=== PATIENT | male | born 1940 | race Caucasian/White ===

== ENCOUNTER 2017-02-06 13:24 | Inpatient (IN) | payer OTHER ==
[~2017-02-06] VITALS: Ht 182.9 cm; Wt 81.4 kg
[~2017-02-06 13:24] MED LIST: COLACE100 MG PO; LOV40I SQ; NOR10T PO
[2017-02-06 15:02] LABS: PLATELET COUNT 334 x10^3mcL (130-400); RED CELL DISTRIBUTION WIDTH 14.3 % (11.5-14.5)
[2017-02-06 15:17] LABS: CARBON DIOXIDE 19.9 mmol/L (21-32); CHLORIDE SERUM 104 mmol/L (98-107); CREATININE SERUM 2.1 mg/dL (0.7-1.3); GLUCOSE SERUM 242 mg/dL (74-106); POTASSIUM SERUM 4.5 mmol/L (3.5-5.1); SODIUM SERUM 141 mmol/L (136-145)
[2017-02-06 15:21] LABS: ALBUMIN 3.9 g/dL (3.4-5.0); ALKALINE PHOSPHATASE 97 U/L (46-116); ALT/SGPT 20 U/L (16-63); AST/SGOT 23 U/L (15-37); BILIRUBIN TOTAL 0.4 mg/dL (0.20-1.00); LIPASE 153 IU/L (73-393); TOTAL PROTEIN, SERUM 7.9 g/dL (6.4-8.2)
[2017-02-06 15:43] LABS: MONOCYTE 2 % (0-7)
[2017-02-06 15:44] LABS: BAND NEUTROPHIL 2 % (0-10); BASOPHIL 0 % (0-2)
[2017-02-06 15:45] LABS: PLATELET MORPHOLOGY PLATELETS NORMAL; SEGMENTED NEUTROPHILS 89 % (37-75)
[2017-02-06] MEDS ORDERED: XANAX0.5 MG PO (15:54)
[2017-02-06 17:01] LABS: MAGNESIUM 1.7 mg/dL (1.8-2.4)
[2017-02-06 18:00] VITALS: BP 140/86
[2017-02-06 18:38] VITALS: Ht 182.9 cm; Wt 81.4 kg
[2017-02-06 20:25] VITALS: BP 148/80
[2017-02-06 22:03] LABS: UA SPECIFIC GRAVITY 1.015 (1.005-1.035); microscopic required? YES; urine erythrocyte 3+ (NEGATIVE)
[2017-02-07 06:14] VITALS: BP 148/83
[2017-02-07 06:46] LABS: PLATELET COUNT 267 x10^3mcL (130-400)
[2017-02-07 06:54] LABS: BASOPHIL % 0 % (0-2); RED CELL DISTRIBUTION WIDTH 14.6 % (11.5-14.5)
[2017-02-07 07:07] LABS: CALCIUM 8.7 mg/dL (8.5-10.1); CARBON DIOXIDE 21.8 mmol/L (21-32); CHLORIDE SERUM 113 mmol/L (98-107); CREATININE SERUM 1.3 mg/dL (0.7-1.3); GLUCOSE SERUM 130 mg/dL (74-106); POTASSIUM SERUM 4.7 mmol/L (3.5-5.1); SODIUM SERUM 143 mmol/L (136-145)
[2017-02-07 14:36] VITALS: BP 144/80
[2017-02-07 17:52] VITALS: BP 136/76
[2017-02-07 21:33] VITALS: BP 167/87
[2017-02-07 23:00] VITALS: BP 157/78
[2017-02-08 05:34] VITALS: BP 148/77
[2017-02-08 07:18] LABS: BASOPHIL % 0.3 % (0-2); PLATELET COUNT 239 x10^3mcL (130-400); RED CELL DISTRIBUTION WIDTH 14.5 % (11.5-14.5)
[2017-02-08 07:35] LABS: CALCIUM 8.4 mg/dL (8.5-10.1); CARBON DIOXIDE 20.6 mmol/L (21-32); CHLORIDE SERUM 113 mmol/L (98-107); CREATININE SERUM 1.1 mg/dL (0.7-1.3); GLUCOSE SERUM 101 mg/dL (74-106); MAGNESIUM 2.1 mg/dL (1.8-2.4); PHOSPHOROUS 1.9 mg/dL (2.5-4.9); POTASSIUM SERUM 4.5 mmol/L (3.5-5.1); SODIUM SERUM 142 mmol/L (136-145)
[2017-02-08 09:31] VITALS: BP 156/83
[2017-02-08 14:54] VITALS: BP 158/87
[2017-02-08 17:39] VITALS: BP 152/87
[2017-02-08 20:08] VITALS: BP 123/87
[2017-02-09 05:47] VITALS: BP 133/76
[2017-02-09] MEDS ORDERED: NITROFURANTOIN100 MG PO (09:01)
[2017-02-09] MEDS ORDERED: LAC PO (09:02)
[2017-02-09] MEDS ORDERED: COLACE100 MG PO (09:03)
[2017-02-09 10:09] VITALS: BP 136/76
== END 2017-02-09 10:50 | disposition home or self-care (01) | DRG 871 ==
LOC: ED 13:24 → DU 15:15
PROVIDERS: Emergency Medicine; ADMIT Family Medicine
DX: A41.9 Sepsis, unspecified organism (principal); N17.0 Acute kidney failure with tubular necrosis; K56.60 Unspecified intestinal obstruction; N39.0 Urinary tract infection, site not specified; R65.20 Severe sepsis without septic shock; D64.9 Anemia, unspecified; F41.9 Anxiety disorder, unspecified; Z96.652 Presence of left artificial knee joint; Z68.24 Body mass index [BMI] 24.0-24.9, adult; Z85.51 Personal history of malignant neoplasm of bladder
CPT/HCPCS: 83880; J0694; J0696; J1200; J2270; J2405; J3475; J3490; J7030; J7040; Q0092; Q9967